=== PATIENT | male | born 1960 ===

== ENCOUNTER 2025-07-03 08:21 | Emergency (ER) | payer OTHER ==
--- OUTSIDE RECORDS SUMMARY | 2025-07-03 08:29 | XMS REPORT | Continuity of Care Document ---
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 [id number] 18:33:59* Imaging (Routine) - Pending Review Specialty Diagnoses / Procedures Referred By Contac t Referred To Contact Radiology Diagnoses Paresthesia Chorea Myelopathy (HCC) Procedures MRI cervical spine wo IV contrast Guillermina Batres MD [address] [place] [address] Phone: tel: fax: Referral ID Status Reason Start Date Expiration Date V isits Requested Visits Authorized [id number] Pending Review 09/28/2024 03/27/2025 1 1 HEATER* Imaging (Routine) - Pending Review Specialty Diagnoses / Procedures Referred By Contac t Referred To Contact Radiology Diagnoses Paresthesia Chorea Myelopathy (HCC) Procedures MRI brain wo IV contrast Guillermina Batres MD [address] [place] [address] Phone: tel: fax: Referral ID Status Reason Start Date Expiration Date V isits Requested Visits Authorized [id number] Pending Review 09/28/2024 03/27/2025 1 1 [facility]ATER [id number] 18:33:59* [id number] 18:33:59* Guillermina Batres MD - 09/28/2024 1:30 PM TUBE HEATER Subjective Pako Dumont is a 64 y.o. male presenting with spasms. History of Present Illness Blurred Vision Associated symptoms include numbness. Patient feels like electromagnetic magnetic becerra in his house are elevated. Ongoing for 6-9 months, like the devices heard about on the media with "[place] syndrome". Pressure on shoulder and back, essential oils help. Puts tinfoil over "hot spots" and he feels like that helps as well. Had labs , reports normal. Feels like he has a sunburn across his abdomen. Prior spine surgery x3. ObjectivePast Medical History He has a past medical history of Brain injury (HCC), History of spinal cord injury, and Hyperlipidemia. Surgical HistoryHe has a past surgical history that includes Neck surgery; Wrist surgery; Back surgery; and Lumbar spine surgery. Family HistoryFamily History: Problem Relation Name Age of Onset No Known Problems Mother No Known Problems Father No Known Problems Sister No Known Problems Brother No Known Problems Mother's Sister No Known Problems Mother's Brother No Known Problems Father's Sister No Known Problems Father's Brother No Known Problems Maternal Grandmother No Known Problems Maternal Grandfather No Known Problems Paternal Grandmother No Known Problems Paternal Grandfather No Known Problems Other Social History He reports that he has quit smoking. His smoking use included cigarettes. He has never used smokeless tobacco. He reports current alcohol use of about 2.0 standard drinks of alcohol per week. He reports that he does not use drugs. AllergiesMorphine MedicationsNo current outpatient medications on file. No current facility-administered medications for this visit. Review of Systems HENT: Positive for tinnitus. Eyes: Positive for blurred vision. Musculoskeletal: Positive for gait problem. Neurological: Positive for numbness. Last Recorded Vitals Vitals: 09/28/24 1342 BP: 148/85 Pulse: 66 Resp: 16 Temp: 36.8 ?C (98.2 ?F) SpO2: 94% Physical ExamVitals reviewed. Constitutional: Appearance: Normal appearance. HENT: Head: Normocephalic and atraumatic. Eyes: General: Lids are normal. Extraocular Movements: Extraocular movements intact. Pupils: Pupils are equal, round, and reactive to light. Cardiovascular: Rate and Rhythm: Normal rate and regular rhythm. Pulmonary: Effort: Pulmonary effort is normal. Breath sounds: Normal breath sounds. Abdominal: General: Bowel sounds are normal. Musculoskeletal: Cervical back: Normal range of motion and neck supple. Comments: Prior cervical laminectomy Neurological: Mental Status: He is alert. Motor: Motor strength is normal. Coordination: Coordination is intact. Psychiatric: Mood and Affect: Mood normal. Speech: Speech normal. Behavior: Behavior normal. Neurological ExamMental Status Alert. Speech is normal. Cranial NervesCN II: Visual acuity is normal. Visual becerra full to confrontation. CN III, IV, : Extraocular movements intact bilaterally. Normal lids and orbits bilaterally. Pupils equal round and reactive to light bilaterally. CN V: Facial sensation is normal. CN VII: Full and symmetric facial movement. CN VIII: Hearing is normal. CN IX, X: Palate elevates symmetrically. Normal gag reflex. CN XI: Shoulder shrug strength is normal. CN XII: Tongue midline without atrophy or fasciculations. MotorNormal muscle bulk throughout. Normal muscle tone. The following abnormal movements were seen: Strength is 5/5 throughout all four extremities. Intermittent choreiform movements that are distractible. No cogwheeling. SensorySensation is intact to light touch, pinprick, vibration and proprioception in all four extremities. ReflexesTrace. Coordination [id number], rapid alternating movements and [id number] normal bilaterally without dysmetria. Gait Stiff and somewhat spastic. Relevant Results Assessment & PlanDiagnoses and all orders for this visit: Paresthesia - Ceruloplasmin; Future - Copper Level; Future - C-Reactive Protein; Future - Immunofixation (REGGIE); Future - West Nile Virus Antibodies; Future - Vitamin B1 Level; Future - Sedimentation Rate; Future - Zinc Level; Future - Antinuclear Antibody; Future - Rheumatoid Factor; Future - Angiotensin Converting Enzyme; Future - MRI brain wo IV contrast; Future - MRI cervical spine wo IV contrast; Future Chorea - Ceruloplasmin; Future - Copper Level; Future - C-Reactive Protein; Future - Immunofixation (REGGIE); Future - West Nile Virus Antibodies; Future - Vitamin B1 Level; Future - Sedimentation Rate; Future - Zinc Level; Future - Antinuclear Antibody; Future - Rheumatoid Factor; Future - Angiotensin Converting Enzyme; Future - MRI brain wo IV contrast; Future - MRI cervical spine wo IV contrast; Future Myelopathy (HCC) - Ceruloplasmin; Future - Copper Level; Future - C-Reactive Protein; Future - Immunofixation (REGGIE); Future - West Nile Virus Antibodies; Future - Vitamin B1 Level; Future - Sedimentation Rate; Future - Zinc Level; Future - Antinuclear Antibody; Future - Rheumatoid Factor; Future - Angiotensin Converting Enzyme; Future - MRI brain wo IV contrast; Future - MRI cervical spine wo IV contrast; Future Patient's gait does seem very myelopathic. Other than extremely rare disorders like the paroxysmal dyskinesias it is unusual to have choreiform movements come and go. Superimposed functional disorder is a possibility. Will check additional labs and imaging and proceed. NCV/EMG may be needed but we will see what initial workup reveals [facility] [id number] 18:33:59Upcoming Encounters Scheduled Orders Name Type Priority Associated Diagnoses Orde r Schedule Ceruloplasmin Lab Routine Paresthesia Chorea Myelopathy (HCC) Expected: 09/28/2024 (Approximate), Expires: 09/28/2025 Copper Level Lab Routine Paresthesia Chorea Myelopathy (HCC) Expected: 09/28/2024 (Approximate), Expires: 09/28/2025 C-Reactive Protein Lab Routine Paresthesia Chorea Myelopathy (HCC) Expected: 09/28/2024 (Approximate), Expires: 09/28/2025 Immunofixation (REGGIE) Lab Routine Paresthesia Chorea Myelopathy (HCC) Expected: 09/28/2024 (Approximate), Expires: 09/28/2025 West Nile Virus Antibodies Lab Routine Paresthesia Chorea Myelopathy (HCC) Expected: 09/28/2024 (Approximate), Expires: 09/28/2025 Vitamin B1 Level Lab Routine Paresthesia Chorea Myelopathy (HCC) Expected: 09/28/2024 (Approximate), Expires: 09/28/2025 Sedimentation Rate Lab Routine Paresthesia Chorea Myelopathy (HCC) Expected: 09/28/2024 (Approximate), Expires: 09/28/2025 Zinc Level Lab Routine Paresthesia Chorea Myelopathy (HCC) Expected: 09/28/2024 (Approximate), Expires: 09/28/2025 Antinuclear Antibody Lab Routine Paresthesia Chorea Myelopathy (HCC) Expected: 09/28/2024 (Approximate), Expires: 09/28/2025 Rheumatoid Factor Lab Routine Paresthesia Chorea Myelopathy (HCC) Expected: 09/28/2024 (Approximate), Expires: 09/28/2025 Angiotensin Converting Enzyme Lab Routine Paresthesia Chorea Myelopathy (HCC) Expected: 09/28/2024 (Approximate), Expires: 09/28/2025 MRI brain wo IV contrast Imaging Routine Paresthesia Chorea Myelopathy (HCC) Expected: 09/28/2024, Expires: 09/28/2025 MRI cervical spine wo IV contrast Imaging Routine Paresthesia Chorea Myelopathy (HCC) Expected: 09/28/2024, Expires: 09/28/2025 Health Maintenance Due Date Last Done Comments CT Colonography 1960 Colonoscopy 1960 Colorectal Cancer Screening 1960 FIT-DNA 1960 FIT 1960 FOBT 1960 Lipid Panel 1960 Medicare Annual Wellness (AWV) 1960 Sigmoidoscopy 1960 Annual Physical 1965 DTaP/Tdap/Td Vaccines (1 - Tdap) 1981 Zoster Vaccines (1 of 2) 2012 Influenza Vaccine (#1) 2024 Respiratory Syncytial Virus (RSV) or >=60 (1 - 1-dose 75+ series) 2037 HIB Vaccines Aged Out No longer eligi ble based on patient's age to complete this topic HPV Vaccines Aged Out No longer eligi ble based on patient's age to complete this topic Hepatitis A Vaccines Aged Out No long er eligible based on patient's age to complete this topic Hepatitis B Vaccines Aged Out No long er eligible based on patient's age to complete this topic IPV Vaccines Aged Out No longer eligi ble based on patient's age to complete this topic Meningococcal Vaccine Aged Out No rebeka shawn eligible based on patient's age to complete this topic Pneumococcal Vaccine: Pediat rics (0 to 5 Years) and At-Risk Patients (6 to 64 Years) Aged Out No longer eligible b ased on patient's age to complete this topic Rotavirus Vaccines Aged Out No longer eligible based on patient's age to complete this topic [id number] 18:33:59 Diagnosis Paresthesia - Primary Disturbance of skin sensation Chorea Other choreas Myelopathy (HCC) Unspecified disease of spinal cord [id number] 18:33:59 [facility]
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
[2025-07-03 18:35] VITALS: BP 138/97; O2SAT 99
== END 2025-07-03 10:06 | disposition home or self-care (01) ==
LOC: ER 08:21
DX: Z71.1 Person with feared health complaint in whom no diagnosis is made (principal)
CPT/HCPCS: 99281